=== PATIENT | male | born 1940 | race Caucasian/White ===

== ENCOUNTER → 2020-02-16 08:28 | Outpatient (BNVA) | payer MEDICARE, SELFPAY | PROVIDERS: PCP Internal Medicine; Referring Provider Internal Medicine; Visit Provider Internal Medicine | DX: I48.0 Paroxysmal atrial fibrillation (principal); Z51.81 Encounter for therapeutic drug level monitoring; Z79.01 Long term (current) use of anticoagulants | CPT/HCPCS: 85610; 99211 ==

== ENCOUNTER → 2020-03-08 08:08 | Outpatient (BNVA) | payer MEDICARE, SELFPAY | PROVIDERS: PCP Internal Medicine; Visit Provider Internal Medicine | DX: I48.0 Paroxysmal atrial fibrillation (principal); Z51.81 Encounter for therapeutic drug level monitoring; Z79.01 Long term (current) use of anticoagulants | CPT/HCPCS: 85610; 99211 ==

== ENCOUNTER → 2020-04-05 08:33 | Outpatient (BNVA) | payer MEDICARE, SELFPAY | PROVIDERS: PCP Internal Medicine; Visit Provider Internal Medicine | DX: I48.0 Paroxysmal atrial fibrillation (principal); Z51.81 Encounter for therapeutic drug level monitoring; Z79.01 Long term (current) use of anticoagulants | CPT/HCPCS: 85610; 99211 ==

== ENCOUNTER → 2020-05-03 13:02 | Outpatient (BNVA) | payer MEDICARE, SELFPAY | PROVIDERS: PCP Internal Medicine; Visit Provider Internal Medicine | DX: I48.0 Paroxysmal atrial fibrillation (principal); Z51.81 Encounter for therapeutic drug level monitoring; Z79.01 Long term (current) use of anticoagulants | CPT/HCPCS: 85610; 99211 ==

== ENCOUNTER → 2020-05-31 13:02 | Outpatient (BNVA) | payer MEDICARE, SELFPAY | PROVIDERS: PCP Internal Medicine; Visit Provider Internal Medicine | DX: I48.0 Paroxysmal atrial fibrillation (principal); Z51.81 Encounter for therapeutic drug level monitoring; Z79.01 Long term (current) use of anticoagulants | CPT/HCPCS: 85610; 99211 ==

== ENCOUNTER → 2020-06-28 13:02 | Outpatient (BNVA) | payer MEDICARE, SELFPAY | PROVIDERS: PCP Internal Medicine; Visit Provider Internal Medicine | DX: I48.0 Paroxysmal atrial fibrillation (principal); Z51.81 Encounter for therapeutic drug level monitoring; Z79.01 Long term (current) use of anticoagulants | CPT/HCPCS: 85610; 99211 ==

== ENCOUNTER → 2020-07-26 13:04 | Outpatient (BNVA) | payer MEDICARE, SELFPAY | PROVIDERS: PCP Internal Medicine; Visit Provider Internal Medicine | DX: I48.0 Paroxysmal atrial fibrillation (principal); Z79.01 Long term (current) use of anticoagulants; Z51.81 Encounter for therapeutic drug level monitoring | CPT/HCPCS: 85610; 99211 ==

== ENCOUNTER → 2020-08-23 13:01 | Outpatient (BNVA) | payer MEDICARE, SELFPAY | PROVIDERS: PCP Internal Medicine; Visit Provider Internal Medicine | DX: I48.0 Paroxysmal atrial fibrillation (principal); Z51.81 Encounter for therapeutic drug level monitoring; Z79.01 Long term (current) use of anticoagulants | CPT/HCPCS: 85610; 99211 ==

== ENCOUNTER → 2020-09-27 13:00 | Outpatient (BNVA) | payer MEDICARE, SELFPAY | PROVIDERS: PCP Internal Medicine; Visit Provider Internal Medicine | DX: I48.0 Paroxysmal atrial fibrillation (principal); Z51.81 Encounter for therapeutic drug level monitoring; Z79.01 Long term (current) use of anticoagulants | CPT/HCPCS: 85610; 99211 ==

== ENCOUNTER → 2020-09-30 13:03 | Outpatient (BNVA) | payer MEDICARE, SELFPAY | PROVIDERS: PCP Internal Medicine; Visit Provider Internal Medicine | DX: I48.0 Paroxysmal atrial fibrillation (principal); Z51.81 Encounter for therapeutic drug level monitoring; Z79.01 Long term (current) use of anticoagulants | CPT/HCPCS: 85610; 99211 ==

== ENCOUNTER → 2020-11-01 13:00 | Outpatient (BNVA) | payer MEDICARE, SELFPAY | PROVIDERS: PCP Internal Medicine; Visit Provider Internal Medicine | DX: I48.0 Paroxysmal atrial fibrillation (principal); Z51.81 Encounter for therapeutic drug level monitoring; Z79.01 Long term (current) use of anticoagulants | CPT/HCPCS: 85610; 99211 ==

== ENCOUNTER 2021-06-30 09:21 | Outpatient (REF) | payer MEDICARE, SELFPAY ==
--- NOTE | ~2021-06-30 | US_ITS ---
EXAMINATION: US COMPLETE ABDOMEN WITH LIVER ELASTOGRAPHY CLINICAL INFORMATION: Abnormal CT of liver COMPARISON: None. TECHNIQUE: Real-time imaging of the abdominal viscera. Noninvasive ultrasound liver fibrosis assessment is performed using Masoud ElastPQ point quantification shear wave elastography (2D-SWE) with a C5-2 MHz transducer. Multiple elastography samples are obtained. FINDINGS: PANCREAS: Normal. The visualized pancreatic head and body are normal in appearance. The remainder of the pancreas is obscured from visualization by the overlying bowel gas. ABDOMINAL AORTA: The proximal, middle, and distal aortic segments are normal in caliber. Plaque at the distal aorta. INFERIOR VENA CAVA: Visualized portions are normal. LIVER: The liver demonstrates normal size and Contour with increased echogenicity. No focal lesion or intrahepatic biliary duct dilatation. The right lobe measures 19 cm in length. The left lobe measures 10.7 cm in length. Portal flow is towards the liver (hepatopetal). Shear wave liver elastography median stiffness is 2.6 m/s (reference: normal median stiffness is 1.3 m/s or less). IQR/median stiffness to assess sampling precision is 0.7 (reference: good quality data set is IQR/median stiffness of 0.15 or less). GALLBLADDER: No stones are seen. There is thickening of the gallbladder wall measuring up to 0.8 cm. COMMON BILE DUCT: Normal in caliber measuring 0.3 cm in diameter. RIGHT KIDNEY: No hydronephrosis. Lower pole simple cyst measures 1.2 cm. Multiple small calcifications throughout the kidney could represent calculi. These measure up to 0.3 cm at the upper pole. The kidney measures 10.8 cm in maximum dimension. LEFT KIDNEY: Upper pole cyst versus caliectasis measuring up to 2.8 cm. No hydronephrosis. No renal calculi or focal parenchymal lesions. The kidney measures 10.6 cm in maximum dimension. SPLEEN: Normal. The spleen measures 9.9 cm in maximum dimension. FREE FLUID: Small volume perihepatic free fluid. US/US abdomen comp w elastography IMPRESSION: 1. Hepatic steatosis. 2. Liver elastography: Although measurements appear suggestive of clinically significant portal hypertension, there is statistical variability of the sampling which decreases accuracy. 3. Gallbladder wall thickening which is nonspecific in the setting of liver disease. 4. Possible nonobstructing right renal calculi. REFERENCE: Society of Radiologists in Ultrasound Liver Stiffness Thresholds (2020): LIVER STIFFNESS THRESHOLDS: *Liver Stiffness equal or less than 1.3 m/s: High probability of being normal. *Liver Stiffness less than 1.7 m/s: In the absence of other known clinical signs, rules out compensated advanced chronic liver disease. *Liver Stiffness 1.7-2.1 m/s: Suggestive of compensated advanced chronic liver disease but need further test for confirmation. *Liver Stiffness over 2.1 m/s: Rules in compensated advanced chronic liver disease. *Liver Stiffness over 2.4 m/s: Suggestive of clinically significant portal hypertension. QUALITY OF DATA SET: *IQR/Median value equal or less than 0.15 implies a quality data set. *IQR/Median value over 0.15 implies a poor quality data set. SIGNIFICANT CHANGE FROM PRIOR EXAM: Significant change if liver stiffness measurement is 10% or greater from prior exam. OTHER CONSIDERATIONS: The stage of liver fibrosis may be overestimated in the setting of acute hepatitis, liver inflammation, elevated liver function tests, hepatic vascular congestion, obstructive cholestasis, non-fasting state, and infiltrative diseases such as amyloidosis and lymphoma. In some patients with NAFLD, the liver stiffness thresholds for compensated advanced chronic liver disease may be lower. In causes other than viral hepatitis and NAFLD, liver stiffness thresholds are not well established.
[2021-06-30 09:49] LABS: MANUAL DIFF FLAG NO
[2021-06-30 10:13] LABS: Basophils Percent Auto 0.6 % (0-2); Eosinophils Absolute Auto 0.1 X10*3/uL (0.0-0.4); Hematocrit 33.8 % (42.0-52.0); Hemoglobin 11.1 g/dl (14.0-18.0); Imm Gran Abs Auto 0.03 X10*3/uL (0.00-0.03); Imm Gran Pct Auto 0.6 % (0.0-0.4); Lymphocytes Absolute Auto 0.7 X10*3/uL (1.2-4.9); Lymphocytes Percent Auto 13.6 % (20-40); Mean Corpuscular HGB Conc 32.8 g/dl (31.0-36.0); Mean Corpuscular Hemoglobin 34.4 pg (27.0-33.0); Mean Corpuscular Volume 104.6 fL (80.0-98.0); Mean Platelet Volume 9.3 fL (9.4-12.4); Monocytes Absolute Auto 0.6 X10*3/uL (0.1-1.2); Monocytes Percent Auto 11.6 % (2-11); Neutrophils Absolute Auto 3.5 x10*3/uL (2.0-8.3); Neutrophils Percent Auto 72.6 % (45-73); Platelet Count 153 X10*3/uL (160-400); Red Blood Count 3.23 X10*6/uL (4.60-5.80); Red Cell Distribution Width 15.5 % (11.0-16.0); White Blood Count 4.8 X10*3/uL (4.8-10.8)
[2021-06-30 10:58] LABS: Alanine Aminotransferase 6 U/L (0-40); Albumin Level 3.9 g/dL (3.5-5.0); Alkaline Phosphatase 77 U/L (39-117); Aspartate Amino Transferase 17 U/L (5-37); Bilirubin Direct 1.4 mg/dL (0.0-0.5); Bilirubin Total 2.1 mg/dL (0.0-1.0); Total Protein 6.4 g/dL (6.5-8.0)
[2021-07-05 15:22] LABS: FIB-ALT 6 U/L (9-46); FIB-Alpha-2-Macroglobulin 161 mg/dL (106-279); FIB-Apolipoprotein A1 103 mg/dL (94-176); FIB-GGT 49 U/L (3-70); FIB-Haptoglobin 171 mg/dL (43-212); FIB-Total Bilirubin 1.8 mg/dL (0.2-1.2); Liver Fibrosis Score 0.68; Liver Fibrosis Stage F3; Nec Inflam Act Grade A0; Nec Inflam Act Score 0.02
== END 2021-06-30 09:22 | disposition home or self-care (01) ==
LOC: HO.US 09:21
PROVIDERS: Absent Provider Internal Medicine; PCP Internal Medicine; Visit Provider Internal Medicine
DX: R93.2 Abnormal findings on diagnostic imaging of liver and biliary tract (principal)
CPT/HCPCS: 36415; 76705; 76981; 80076; 81596; 85025

== ENCOUNTER 2021-09-05 11:06 | Outpatient (REF) | payer MEDICARE, SELFPAY ==
[2021-09-05 11:25] LABS: MANUAL DIFF FLAG NO
[2021-09-05 11:47] LABS: Eosinophils Absolute Auto 0.1 X10*3/uL (0.0-0.4); Eosinophils Percent Auto 1.9 % (0-4); Hematocrit 23.7 % (42.0-52.0); Hemoglobin 7.6 g/dl (14.0-18.0); Imm Gran Abs Auto 0.02 X10*3/uL (0.00-0.03); Imm Gran Pct Auto 0.5 % (0.0-0.4); Lymphocytes Absolute Auto 0.8 X10*3/uL (1.2-4.9); Lymphocytes Percent Auto 18.3 % (20-40); Mean Corpuscular HGB Conc 32.1 g/dl (31.0-36.0); Mean Corpuscular Hemoglobin 33.9 pg (27.0-33.0); Mean Corpuscular Volume 105.8 fL (80.0-98.0); Mean Platelet Volume 9.1 fL (9.4-12.4); Monocytes Absolute Auto 0.5 X10*3/uL (0.1-1.2); Monocytes Percent Auto 11.3 % (2-11); Neutrophils Absolute Auto 2.8 x10*3/uL (2.0-8.3); Platelet Count 236 X10*3/uL (160-400); Red Blood Count 2.24 X10*6/uL (4.60-5.80); Red Cell Distribution Width 14.8 % (11.0-16.0); White Blood Count 4.2 X10*3/uL (4.8-10.8)
[2021-09-05 12:11] LABS: Alanine Aminotransferase 6 U/L (0-40); Alkaline Phosphatase 59 U/L (39-117); Anion Gap 14 (12-20); Aspartate Amino Transferase 17 U/L (5-37); Bilirubin Total 1.5 mg/dL (0.0-1.0); Blood Urea Nitrogen 45 mg/dL (9-16); C Reactive Protein 0.16 mg/dL (< or = 0.50); Calcium 9.4 mg/dL (8.4-10.2); Carbon Dioxide 24 mmol/L (22-29); Chloride 102 mmol/L (96-108); Estimated Glomerular Filt Rate 38; Glucose Random 191 mg/dL (60-115); Iron 32 mcg/dL (45-160); Percent Iron Saturation 8 % (15-50); Potassium 4.9 mmol/L (3.3-5.1); Sodium 135 mmol/L (135-145); Total Iron Binding Capacity 412 mcg/dL (228-428); Total Protein 6.8 g/dL (6.5-8.0); Unsaturated Iron Binding 380 ug/dL
[2021-09-05 12:23] LABS: Erythrocyte Sedimentation Rate 49 MM/HR (0-15)
[2021-09-05 12:35] LABS: Ferritin 42 ng/mL (20-250); TSH reflex Free T4 4.42 uIU/mL (0.32-4.0)
[2021-09-05 12:47] LABS: Vitamin B12 737 pg/mL (200-900)
== END 2021-09-05 11:07 | disposition home or self-care (01) ==
LOC: HO.LAB 11:06
PROVIDERS: PCP Internal Medicine; Visit Provider Internal Medicine
DX: K51.20 Ulcerative (chronic) proctitis without complications (principal); K62.5 Hemorrhage of anus and rectum; R53.83 Other fatigue
CPT/HCPCS: 36415; 80048; 80076; 82607; 82728; 82746; 83540; 84439; 84443; 85025; 85652; 86140

== ENCOUNTER 2021-09-06 14:51 | Outpatient (REF) | payer MEDICARE, SELFPAY | END 2021-09-06 14:52 | disposition home or self-care (01) | LOC: HO.LAB 14:51 | PROVIDERS: PCP Internal Medicine; Visit Provider Internal Medicine | DX: Z13.89 Encounter for screening for other disorder (principal) | CPT/HCPCS: 36415; 80048; 85025; 86850; 86900; 86901 ==

== ENCOUNTER 2021-09-07 07:18 | Outpatient (REF) | payer MEDICARE, SELFPAY ==
[2021-09-06 15:13] LABS: MANUAL DIFF FLAG NO
[2021-09-06 15:40] LABS: Basophils Absolute Auto 0.1 X10*3/uL (0.0-0.2); Basophils Percent Auto 1.3 % (0-2); Eosinophils Absolute Auto 0.1 X10*3/uL (0.0-0.4); Eosinophils Percent Auto 1.5 % (0-4); Hematocrit 23.3 % (42.0-52.0); Hemoglobin 7.4 g/dl (14.0-18.0); Imm Gran Abs Auto 0.02 X10*3/uL (0.00-0.03); Imm Gran Pct Auto 0.4 % (0.0-0.4); Lymphocytes Absolute Auto 0.9 X10*3/uL (1.2-4.9); Lymphocytes Percent Auto 18.8 % (20-40); Mean Corpuscular HGB Conc 31.8 g/dl (31.0-36.0); Mean Corpuscular Hemoglobin 33.9 pg (27.0-33.0); Mean Corpuscular Volume 106.9 fL (80.0-98.0); Mean Platelet Volume 8.9 fL (9.4-12.4); Monocytes Absolute Auto 0.7 X10*3/uL (0.1-1.2); Monocytes Percent Auto 13.8 % (2-11); Neutrophils Absolute Auto 3.1 x10*3/uL (2.0-8.3); Neutrophils Percent Auto 64.2 % (45-73); Platelet Count 241 X10*3/uL (160-400); Red Blood Count 2.18 X10*6/uL (4.60-5.80); Red Cell Distribution Width 14.9 % (11.0-16.0); White Blood Count 4.8 X10*3/uL (4.8-10.8)
[2021-09-06 16:10] LABS: Anion Gap 15 (12-20); Blood Urea Nitrogen 40 mg/dL (9-16); Calcium 9.6 mg/dL (8.4-10.2); Carbon Dioxide 23 mmol/L (22-29); Chloride 103 mmol/L (96-108); Estimated Glomerular Filt Rate 39; Glucose Random 181 mg/dL (60-115); Sodium 136 mmol/L (135-145)
== END 2021-09-07 07:19 | disposition home or self-care (01) ==
LOC: HO.MDS 07:18
PROVIDERS: PCP Internal Medicine; Visit Provider Internal Medicine
DX: D64.9 Anemia, unspecified (principal)
CPT/HCPCS: 36415; 36430; 80048; 85025; 86850; 86900; 86901; 86923; P9016

== ENCOUNTER 2021-09-12 12:16 | Day surgery (SDC) | payer MEDICARE, SELFPAY ==
[2021-09-12 13:19] VITALS: BMI 22.4
[2021-09-12 13:47] VITALS: BP 118/64; PULSE 65; RESP 16; TEMP 36.2; O2SAT 99
[2021-09-12 13:48] LABS: Glucose, Whole Blood 127 mg/dL (60-115)
--- NOTE | 2021-09-12 14:33 | P.CONAN_ITS ---
HPI - Anesthesia Eval Consult details Narrative: 81 M for colonoscopy for rectal bleeding A fib , s/p ablation and cardioversion , but failed . Eliquis , last dose 4 days ago , cardiology on board . Rectal bleeding LE weakness , being worked up for metastasis . FOR[facility], [facility] Active Problems Active Problems: All Active Problems (Updated 09/12/21 @ 13:29 by Mercedes Melchor, RN) Current use of anticoagulant therapy (Acute) Past Medical History Medical History (Updated 09/12/21 @ 13:29 by Mercedes Melchor, RN) Afib Cirrhosis Diabetes Elevated cholesterol Gout History of cardioversion History of prostate cancer History of shingles HTN (hypertension) Ulcerative proctitis Family History Family history of problems with anesthesia: No Surgical History Surgical History (Updated 09/12/21 @ 13:31 by Mercedes Melchor, RN) History of carpal tunnel release of both wrists History of total left knee replacement (TKR) Hx of bilateral inguinal hernia repair Hx of colonoscopy History of Problems with Anesthesia: No Social History Social History Patient Tobacco Use Status: Former Tobacco user Quit Date: 40 yrs ago Use of substances other than those prescribed or required for medical reasons: No Are you DNR?: No Advance Directives: No Advance Directives Information Provided: Yes Meds Allergies Allergy/AdvReac Type Severity Reaction Status Date / Time amlodipine [From [facility]] AdvReac Severe Swelling Verified 09/12/21 13:05 Active Medications: Current Medications Sodium Biphosphate/Sodium Phosphate (Sodium Phosphate,Morrill-Dibasic 133 Ml Enema) 133 ml ND ONCE PRN PRN Reason: Poor Colonoscopy Prep Results Home Medications Medication Instructions Recorded Confirmed Last Taken Type allopurinol 100 mg tablet 200 mg PO DAILY 07/26/20 07/26/20 Unknown History balsalazide 750 mg capsule 750 mg PO TID 07/26/20 07/26/20 Unknown History blood sugar diagnostic #10 ea 07/26/20 07/26/20 Unknown History doxazosin 2 mg tablet 2 mg PO DAILY 07/26/20 07/26/20 Unknown History glipizide 5 mg tablet 15 mg PO DAILY 07/26/20 07/26/20 Unknown History lancets 30 gauge #100 ea 07/26/20 07/26/20 Unknown History metformin 500 mg tablet,extended 500 mg PO DAILY 07/26/20 07/26/20 Unknown History release 24 hr simvastatin 40 mg tablet 40 mg PO BEDTIME 07/26/20 07/26/20 Unknown History spironolactone 25 mg tablet 25 mg PO DAILY 07/26/20 07/26/20 Unknown History torsemide 20 mg tablet 20 mg PO DAILY 07/26/20 07/26/20 Unknown History apixaban 5 mg tablet (Eliquis) 1 tab PO BID 09/12/21 09/12/21 09/07/21 History glipizide 5 mg tablet 10 mg PO BEDTIME 09/12/21 09/12/21 Unknown History metoprolol succinate 25 mg 25 mg PO DAILY 09/12/21 09/12/21 09/12/21 10:00 History tablet,extended release 24 hr Exam Exam Date and Time: September 12, 2021 1433 Height,Weight and Vital Signs: Height 5 ft 8.5 in Weight 68.039 kg Last Vital Signs Temp 97.2 F 09/12/21 13:47 Pulse 65 09/12/21 13:47 Resp 16 09/12/21 13:47 BP 118/64 09/12/21 13:47 Pulse Ox 99 09/12/21 13:47 Pertinent Lab Results Pertinent Lab Results: Laboratory Tests 09/12/21 13:23 POC Glucose 127 H Airway Mallampati Class: IV TM Dist: >3cm Neck ROM: Full Loose/Missing/Broken Teeth: Yes (Loose teeth , Missibg teeth , caps ) Heart: S1, S2 Lungs: b/l breath sounds Assessment and Plan Assessment Anesthesia Assessment: Anesthesia Plan Discussed and Chart Reviewed Final Anesthetic Review Family History of Problems with Anesthesia: No History of Problems with Anesthesia: No NPO: Yes ASA Class: III Final Preanesthetic Review: Meds/Allgs Chart Reviewed and Anes Risks/Benef Reviewed Patient Risk: High Procedure Risk: Intermediate Anesthetic Plan Anesthetic Plan: MAC: Disposition: Standard PACU
[2021-09-12] MEDS: Lactated Ringers 1,000 ML 80 ML IVCONT (14:56)
[2021-09-12 16:30] VITALS: BP 91/61; PULSE 76; RESP 18; TEMP 36.2; O2SAT 100
--- NOTE | 2021-09-12 16:31 | PM.OP ---
Brief Operative Note Date of Service: 09/12/21 Pre-op diagnosis: Rectal bleeding Post-op diagnosis: other (Ulcerative proctitis/Radiation proctitis. Diverticulosis) Procedure: Colonoscopy to the cecum Surgeon: Darnell Jordan Anesthesia: MAC Was an Film Casting Operator used for this Procedure?: No Estimated blood loss (mL): 5.0 Pathology: none sent Condition: stable Disposition: PACU
[2021-09-12 16:45] VITALS: BP 102/53; PULSE 68; RESP 18; O2SAT 99
[2021-09-12 17:00] VITALS: BP 112/66; PULSE 70; RESP 18; O2SAT 97
[2021-09-12 17:05] LABS: MANUAL DIFF FLAG NO
[2021-09-12 17:06] LABS: Basophils Percent Auto 1.4 % (0-2); Eosinophils Percent Auto 1.4 % (0-4); Hematocrit 26.1 % (42.0-52.0); Hemoglobin 8.1 g/dl (14.0-18.0); Lymphocytes Absolute Auto 0.7 X10*3/uL (1.2-4.9); Lymphocytes Percent Auto 24.7 % (20-40); Mean Corpuscular Hemoglobin 32.9 pg (27.0-33.0); Mean Corpuscular Volume 106.1 fL (80.0-98.0); Mean Platelet Volume 8.7 fL (9.4-12.4); Monocytes Absolute Auto 0.4 X10*3/uL (0.1-1.2); Neutrophils Absolute Auto 1.6 x10*3/uL (2.0-8.3); Neutrophils Percent Auto 58.5 % (45-73); Platelet Count 201 X10*3/uL (160-400); Red Blood Count 2.46 X10*6/uL (4.60-5.80); Red Cell Distribution Width 14.2 % (11.0-16.0); White Blood Count 2.8 X10*3/uL (4.8-10.8)
[2021-09-12 17:12] LABS: INTERNATIONAL NORM RATIO 1.3 (0.9-1.1); Prothrombin Time 14.4 SEC (9.9-13.0)
--- NOTE | 2021-09-12 17:12 | PC.NURSE ---
dr. moore alerted that patient results have returned. h/h 8.1/.1
--- NOTE | 2021-09-12 17:26 | PC.NURSE ---
dr. moore met with patient and family to review plan of care and results stat cbc.
--- NOTE | 2021-09-13 03:47 | OP_ITS ---
SURGEON: Darnell Jordan MD INDICATIONS: The patient presents for evaluation of rectal bleeding. Full consent has been obtained from him for this, including risks of bleeding and perforation. PREOPERATIVE DIAGNOSIS: POSTOPERATIVE DIAGNOSIS: PROCEDURE PERFORMED: ESTIMATED BLOOD LOSS: COMPLICATIONS: ANESTHESIA: Monitored anesthesia care. ASSISTANTS: SPECIMENS: PROCEDURE: Colonoscopy to the cecum. PREOPERATIVE DIAGNOSES: Rectal bleeding. POSTOPERATIVE DIAGNOSES: Rectal bleeding, proctitis, diffuse diverticulosis. DESCRIPTION OF PROCEDURE: The digital rectal exam revealed no perianal disease. There is no palpable mass nor tenderness. The Olympus video pediatric colonoscope was entered into the rectum and advanced to the cecum. Advancement to the cecum was somewhat difficult. Preparation, particularly in the sigmoid colon and left colon was somewhat poor with solid stool. Once in the cecum, I did identify cecal pouch with appendiceal orifice and a normal-appearing ileocecal valve. The cecum appeared normal. The scope was slowly withdrawn assessing all mucosal surfaces carefully. Preparation was good in the ascending colon and transverse colon, but again there was a moderate amount of solid stool in the descending and sigmoid colon. The stool was brown and there was no blood. I did not visualize any sign of colitis, polyps, nor angiodysplasia. There was a diffuse amount of diverticulosis extending from the proximal ascending colon to the distal sigmoid colon. The only area of bleeding was in the very distal rectum. This was seen in the forward viewing and retroflexed positions. The tissue was very friable at this area. After a lot of irrigation and suctioning parts of the distal rectum appeared consistent with some ulcerative proctitis and bleeding from those areas, but other parts appeared consistent with very friable telangiectasia and bleeding from that area with a lot of friability. There was one area with some ulceration noted in the distal rectum as well. I did not visualize anything looking like a neoplasm that needed biopsy and the tissue itself was extremely friable anyway so I wanted to avoid biopsying that area anyway. The area of inflammation and friability was probably just in the distal 2 to 3 cm of the rectum. The scope was withdrawn from the patient. He tolerated the procedure well and was returned to the recovery area in stable condition. IMPRESSION: 1. 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 2. Diverticulosis. 3. Small internal hemorrhoids. PLAN: At this point, the patient has been using balsalazide 2.25 g t.i.d. and a nightly 1000 mg mesalamine suppository for about 2 months. While he has been off the Eliquis for the past week, he has noticed a definite decrease in his bleeding. However, while he is on the Eliquis, he has had significant bleeding and in fact required a unit of blood as an outpatient last week. At this point, I have advised him to remain off Eliquis for another week. I shall switch him to a trial of a steroid suppository b.i.d., as well as continuing his balsalazide. I do not think a steroid foam would be helpful given the very distal location of this inflammation. If he continues to have significant problems, then we might need to consider something such as argon plasma coagulation of the area to at least treat any component of a radiation proctitis, although again it does appear that there is some component of ulcerative proctitis as well. He was advised to stay off all aspirin and NSAIDs. He is going to have another CBC today before he goes home to be sure things are stable. If it does come to the point of his needing another procedure then we may want to obtain biopsies from the area of presumed proctitis so as to more definitively rule out any type of neoplastic involvement as well. This has all been discussed with his in detail. Also of note is the patient's weight loss. He is scheduled for an MRI at the end of this week to further evaluate for the possibility of metastatic prostate cancer. If that is negative for that, we will need to follow his weight and see if there is some other source contributing to the weight loss as well. This has been discussed with his as well. MD EMMETT Tsang/EDDIE / [id number] [place]
== END 2021-09-12 17:27 | disposition home or self-care (01) ==
PROVIDERS: PCP Internal Medicine; Visit Provider Internal Medicine
PROC: 0DJD8ZZ Inspection of Lower Intestinal Tract, Via Natural or Artificial Opening Endoscopic (ICD-10-PCS; CPT 45378; principal; 2021-09-12 13:40)
DX: K62.5 Hemorrhage of anus and rectum (principal); D64.9 Anemia, unspecified; R63.4 Abnormal weight loss; K51.20 Ulcerative (chronic) proctitis without complications; K62.7 Radiation proctitis; K57.30 Diverticulosis of large intestine without perforation or abscess without bleeding; K64.8 Other hemorrhoids; K74.60 Unspecified cirrhosis of liver; E78.00 Pure hypercholesterolemia, unspecified; I48.91 Unspecified atrial fibrillation; I10 Essential (primary) hypertension; M10.9 Gout, unspecified; E11.9 Type 2 diabetes mellitus without complications; Z79.84 Long term (current) use of oral hypoglycemic drugs; Z79.899 Other long term (current) drug therapy; Z79.01 Long term (current) use of anticoagulants; Z88.8 Allergy status to other drugs, medicaments and biological substances; Z85.46 Personal history of malignant neoplasm of prostate; Z96.652 Presence of left artificial knee joint; Z87.891 Personal history of nicotine dependence
CPT/HCPCS: 45378; 36415; 82947; 85025; 85610

== ENCOUNTER 2021-09-22 09:27 | Outpatient (REF) | payer MEDICARE, SELFPAY | END 2021-09-22 09:28 | disposition home or self-care (01) | LOC: HO.MDS 09:27 | PROVIDERS: PCP Radiology Diagnostic Radiology; Visit Provider Internal Medicine | DX: D64.9 Anemia, unspecified (principal); K51.20 Ulcerative (chronic) proctitis without complications | CPT/HCPCS: 36430; 86850; 86900; 86901; 86923; P9016 ==

== ENCOUNTER 2021-10-11 06:17 | Day surgery (SDC) | payer MEDICARE, SELFPAY ==
--- NOTE | 2021-10-10 12:00 | HO.ANESPROP2 ---
HPI - Anesthesia Eval Consult details Narrative: 81yo M for Sigmoidoscopy Flexible with APC Eliquis for afib s/p colo 08/2021 with MAC PMFSH Active Problems Active Problems: All Active Problems (Updated 09/12/21 @ 13:29 by Mercedes Melchor, RN) Current use of anticoagulant therapy (Acute) Past Medical History Medical History (Updated 09/12/21 @ 13:29 by Mercedes Melchor, RN) Afib Cirrhosis Diabetes Elevated cholesterol Gout History of cardioversion History of prostate cancer History of shingles HTN (hypertension) Ulcerative proctitis Family History Family history of problems with anesthesia: No Surgical History Surgical History (Updated 09/12/21 @ 13:31 by Mercedes Melchor, RN) History of carpal tunnel release of both wrists History of total left knee replacement (TKR) Hx of bilateral inguinal hernia repair Hx of colonoscopy History of Problems with Anesthesia: No Social History Social History Patient Tobacco Use Status: Former Tobacco user Quit Date: 40 yrs ago Meds Allergies Allergy/AdvReac Type Severity Reaction Status Date / Time amlodipine [From [facility]] AdvReac Severe Swelling Verified 09/12/21 13:05 Home Medications Medication Instructions Recorded Confirmed Last Taken Type allopurinol 100 mg tablet 200 mg PO DAILY 07/26/20 07/26/20 Unknown History balsalazide 750 mg capsule 750 mg PO TID 07/26/20 07/26/20 Unknown History blood sugar diagnostic #10 ea 07/26/20 07/26/20 Unknown History doxazosin 2 mg tablet 2 mg PO DAILY 07/26/20 07/26/20 Unknown History glipizide 5 mg tablet 15 mg PO DAILY 07/26/20 07/26/20 Unknown History lancets 30 gauge #100 ea 07/26/20 07/26/20 Unknown History metformin 500 mg tablet,extended 500 mg PO DAILY 07/26/20 07/26/20 Unknown History release 24 hr simvastatin 40 mg tablet 40 mg PO BEDTIME 07/26/20 07/26/20 Unknown History spironolactone 25 mg tablet 25 mg PO DAILY 07/26/20 07/26/20 Unknown History torsemide 20 mg tablet 20 mg PO DAILY 07/26/20 07/26/20 Unknown History apixaban 5 mg tablet (Eliquis) 1 tab PO BID 09/12/21 09/12/21 09/07/21 History glipizide 5 mg tablet 10 mg PO BEDTIME 09/12/21 09/12/21 Unknown History metoprolol succinate 25 mg 25 mg PO DAILY 09/12/21 09/12/21 09/12/21 10:00 History tablet,extended release 24 hr Exam Exam Date and Time: October 10, 2021 1200 Pertinent Lab Results Pertinent Lab Results: Laboratory Tests 09/06/21 09/12/21 15:11 17:00 WBC 2.8 L Hgb 8.1 L Hct 26.1 L Plt Count 201 Sodium 136 Potassium 5.0 Chloride 103 Carbon Dioxide 23 BUN 40 H Creatinine 1.68 H Labs from outside facility done 10/05/21 similar to above Assessment and Plan Assessment Anesthesia Assessment: Chart Reviewed Final Anesthetic Review Family History of Problems with Anesthesia: No History of Problems with Anesthesia: No
[2021-10-11 06:34] VITALS: BMI 22.4
[2021-10-11 06:34] LABS: MANUAL DIFF FLAG NO
[2021-10-11 06:37] LABS: Basophils Absolute Auto 0.1 X10*3/uL (0.0-0.2); Basophils Percent Auto 1.1 % (0-2); Eosinophils Absolute Auto 0.1 X10*3/uL (0.0-0.4); Eosinophils Percent Auto 2.2 % (0-4); Hematocrit 29.7 % (42.0-52.0); Hemoglobin 9.3 g/dl (14.0-18.0); Imm Gran Abs Auto 0.01 X10*3/uL (0.00-0.03); Imm Gran Pct Auto 0.2 % (0.0-0.4); Lymphocytes Absolute Auto 0.9 X10*3/uL (1.2-4.9); Lymphocytes Percent Auto 20.8 % (20-40); Mean Corpuscular HGB Conc 31.3 g/dl (31.0-36.0); Mean Corpuscular Hemoglobin 30.8 pg (27.0-33.0); Mean Corpuscular Volume 98.3 fL (80.0-98.0); Mean Platelet Volume 8.6 fL (9.4-12.4); Monocytes Absolute Auto 0.6 X10*3/uL (0.1-1.2); Monocytes Percent Auto 13.2 % (2-11); Neutrophils Absolute Auto 2.8 x10*3/uL (2.0-8.3); Neutrophils Percent Auto 62.5 % (45-73); Platelet Count 235 X10*3/uL (160-400); Red Blood Count 3.02 X10*6/uL (4.60-5.80); White Blood Count 4.5 X10*3/uL (4.8-10.8)
[2021-10-11 06:42] VITALS: BP 117/66; PULSE 65; RESP 16; TEMP 36.4; O2SAT 98
[2021-10-11 06:55] LABS: INTERNATIONAL NORM RATIO 1.3 (0.9-1.1); Prothrombin Time 14.8 SEC (9.9-13.0)
[2021-10-11] MEDS: Lactated Ringers 1,000 ML 50 ML IVCONT (07:08)
[2021-10-11 07:15] LABS: Glucose, Whole Blood 153 mg/dL (60-115)
--- NOTE | 2021-10-11 07:23 | HO.ANESPROP2 ---
[facility] Active Problems Active Problems: All Active Problems (Updated 09/12/21 @ 13:29 by Mercedes Melchor RN) Current use of anticoagulant therapy (Acute) Past Medical History Medical History Afib Cirrhosis Diabetes Elevated cholesterol Gout History of cardioversion History of prostate cancer History of shingles HTN (hypertension) Ulcerative proctitis Family History Family history of problems with anesthesia: No Surgical History Surgical History History of carpal tunnel release of both wrists History of total left knee replacement (TKR) Hx of bilateral inguinal hernia repair Hx of colonoscopy History of Problems with Anesthesia: No Social History Social History Patient Tobacco Use Status: Former Tobacco user Quit Date: >30 yrs ago Use of substances other than those prescribed or required for medical reasons: No Are you DNR?: No Advance Directives: No Advance Directives Information Provided: Yes Meds Allergies Allergy/AdvReac Type Severity Reaction Status Date / Time amlodipine [From [facility]] AdvReac Severe Swelling Verified 10/11/21 06:31 Active Medications: Current Medications Lactated Ringer's (Lr) 1,000 mls @ 50 mls/hr IVCONT .Q20H MIKEY Last Admin: 10/11/21 07:08 Dose: 50 mls/hr Home Medications Medication Instructions Recorded Confirmed Last Taken Type allopurinol 100 mg tablet 200 mg PO DAILY 07/26/20 10/11/21 Unknown History balsalazide 750 mg capsule 750 mg PO TID 07/26/20 10/11/21 Unknown History blood sugar diagnostic #10 ea 07/26/20 10/11/21 Unknown History doxazosin 2 mg tablet 2 mg PO DAILY 07/26/20 10/11/21 Unknown History glipizide 5 mg tablet 15 mg PO DAILY 07/26/20 10/11/21 Unknown History lancets 30 gauge #100 ea 07/26/20 10/11/21 Unknown History metformin 500 mg tablet,extended 500 mg PO DAILY 07/26/20 10/11/21 Unknown History release 24 hr simvastatin 40 mg tablet 40 mg PO BEDTIME 07/26/20 10/11/21 Unknown History spironolactone 25 mg tablet 25 mg PO DAILY 07/26/20 10/11/21 Unknown History torsemide 20 mg tablet 20 mg PO DAILY 07/26/20 10/11/21 Unknown History apixaban 5 mg tablet (Eliquis) 1 tab PO BID 09/12/21 10/11/21 10/05/21 History glipizide 5 mg tablet 10 mg PO BEDTIME 09/12/21 10/11/21 Unknown History metoprolol succinate 25 mg 25 mg PO DAILY 09/12/21 10/11/21 10/11/21 06:00 History tablet,extended release 24 hr Exam Exam Date and Time: October 11, 2021722 Height,Weight and Vital Signs: Height 5 ft 8.5 in Weight 68.039 kg Last Vital Signs Temp 97.6 F 10/11/21 06:42 Pulse 65 10/11/21 06:42 Resp 16 10/11/21 06:42 BP 117/66 10/11/21 06:42 Pulse Ox 98 10/11/21 06:42 O2 Del Method 10/11/21 06:42 Pertinent Lab Results Pertinent Lab Results: Laboratory Tests 10/11/21 10/11/21 10/11/21 06:28 06:28 06:59 WBC 4.5 L RBC 3.02 L D Hgb 9.3 L Hct 29.7 L MCV 98.3 H MCH 30.8 MCHC 31.3 RDW 17.0 H Plt Count 235 MPV 8.6 L Immature Gran % (Auto) 0.2 Neut % (Auto) 62.5 Lymph % (Auto) 20.8 [place] % (Auto) 13.2 H Eos % (Auto) 2.2 Baso % (Auto) 1.1 Lymph # (Auto) 0.9 L [place] # (Auto) 0.6 Eos # (Auto) 0.1 Baso # (Auto) 0.1 Abs Immat Gran (auto) 0.01 Absolute Neuts (auto) 2.8 Absolute Nucleated RBC 0.000 Nucleated RBC % (auto) 0.0 PT 14.8 H INR 1.3 H POC Glucose 153 H Airway Mallampati Class: III TM Dist: >3cm Neck ROM: Full Partial: Upper Loose/Missing/Broken Teeth: Yes and Upper Heart: irrr Lungs: clear Assessment and Plan Final Anesthetic Review Family History of Problems with Anesthesia: No History of Problems with Anesthesia: No NPO: Yes ASA Class: III Final Preanesthetic Review: No Changes in Pt Med Stat, Meds/Allgs Chart Reviewed, Consent Obtained/Reviewed and Anes Risks/Benef Reviewed Patient Risk: Intermediate Procedure Risk: Low Anesthetic Plan Disposition: Standard PACU
--- NOTE | 2021-10-11 08:14 | P.BOP_ITS ---
Brief Operative Note Date of Service: 10/11/21 Pre-op diagnosis: rectal bleeding, radiation proctitis, ulcerative proctitis Post-op diagnosis: same Procedure: FLEXIBLE SIGMOIDOSCOPY TILL 20 CMS WITH APC TREATMENT OF RADIATION PROCTITIS Consent: Indications for the procedure and potential complications of bleeding, perforation, reaction to medications and missed diagnosis were discussed with the patient and informed consent was obtained. Instrument: Olympus PCF H 190 L variable stiffness pediatric colonoscope Monitoring: Vital signs and clinical assessment, intermittent blood pressure monitoring, continuous EKG monitoring, Pulse oximetry and Carbon Dioxide monitoring were done throughout the procedure. Procedure: The patient was placed in the left lateral decubitis position and pre-procedure medications were administered. After a digital rectal examination of the ano-rectum, the video colonoscope was inserted into the rectum and advanced to 30 cms into the sigmoid colon. The colonoscope was slowly withdrawn in a retrograde panoramic fashion and the colon mucosa was carefully examined including a retroflexed view of the rectum. Findings and interventions are described below. Procedure Difficulty: Without difficulty Findings: Sigmoid Colon: Normal mucosa without bleeding. Moderate diverticulosis Rectum: Friable appearing mucosa from 0-8 cms with multiple telangiectasia some with slow oozing. Radiation proctitis was treated with APC with cessation of bleeding. A single 7-8 mm ulcer just above the anal verge - ulcerative proctitis appears to have improved since his previous colonoscopy. Ano-rectum: Normal Impression and Post Procedure Diagnosis: Flexible Sigmoidoscopy Findings: Moderate diverticulosis seen in the sigmoid colon Plan: Patient will follow up with Dr Jordan. If he has continued rectal bleeding, repeat Flexible Sigmoidoscopy in 4-6 weeks for repeat APC treatment. Above findings were reviewed with the patient. Surgeon: MD Darnell Myrick MD Anesthesia: MAC (Dr Emerson) Was an Sdv Pilot/Navigator/Dds Operator used for this Procedure?: Yes Sdv Pilot/Navigator/Dds Operator: Kamryn Farmer Estimated blood loss (mL): 0 Pathology: none sent Condition: stable Disposition: PACU
[2021-10-11 08:16] VITALS: BP 109/67; PULSE 62; RESP 18; TEMP 37.1; O2SAT 100
[2021-10-11] MEDS: ondansetron HCL 4 MG/2 ML VIAL IVPUSH (08:16)
--- NOTE | 2021-10-11 08:16 | P.BOP_ITS ---
Brief Operative Note Date of Service: 10/11/21 Pre-op diagnosis: Rectal bleeding Post-op diagnosis: other (Radiation-induced proctitis with telangiectasias and rectal ulcer) Procedure: Flex sig with APC treatment Surgeon: Darnell Jordan Anesthesia: MAC Was an Financial Services Professional used for this Procedure?: No Financial Services Professional: Whit José Estimated blood loss (mL): 5.0 Pathology: none sent Condition: stable Disposition: PACU
--- NOTE | 2021-10-11 08:24 | P.OP_ITS ---
Operative Note Operative Note Date of Service: 10/11/21 Narrative: Pre-op diagnosis: rectal bleeding, radiation proctitis, ulcerative proctitis Post-op diagnosis:?same Procedure: FLEXIBLE SIGMOIDOSCOPY TILL 20 CMS WITH APC TREATMENT OF RADIATION PROCTITIS Consent: Indications for the procedure and potential complications of bleeding, perforation, reaction to medications and missed diagnosis were discussed with the patient and informed consent was obtained. Instrument: Olympus PCF H 190 L variable stiffness pediatric colonoscope Monitoring: Vital signs and clinical assessment, intermittent blood pressure monitoring, continuous EKG monitoring, Pulse oximetry and Carbon Dioxide monitoring were done throughout the procedure. Procedure: The patient was placed in the left lateral decubitis position and pre-procedure medications were administered. After a digital rectal examination of the ano-rectum, the video colonoscope was inserted into the rectum and advanced to 30 cms into the sigmoid colon. The colonoscope was slowly withdrawn in a retrograde panoramic fashion and the colon mucosa was carefully examined including a retroflexed view of the rectum. Findings and interventions are described below. Procedure Difficulty: Without difficulty Findings: Sigmoid Colon:? Normal mucosa without bleeding. Moderate diverticulosis Rectum:? Friable appearing mucosa from 0-8 cms with multiple telangiectasia some with slow oozing. Radiation proctitis was treated with APC with cessation of bleeding. A single 7-8 mm ulcer just above the anal verge - ulcerative proctitis appears to have improved since his previous colonoscopy. Ano-rectum: Normal Impression and Post Procedure Diagnosis: Flexible Sigmoidoscopy Findings: Moderate diverticulosis seen in the sigmoid colon Plan: Patient will follow up with Dr Jordan. If he has continued rectal bleeding, repeat Flexible Sigmoidoscopy in 4-6 weeks for repeat APC treatment. Above findings were reviewed with the patient. Surgeon: MD Darnell Myrick MD Anesthesia:?MAC (Dr Emerson) Was an Supervisor Electron Tube Processing used for this Procedure?:?Yes Supervisor [employer] Tube Processing:?Kamryn Farmer Estimated blood loss (mL):?0 Pathology:?none sent Condition:?stable Disposition:?PACU
[2021-10-11 08:31] VITALS: BP 112/66; PULSE 67; RESP 18; TEMP 36.7; O2SAT 97
== END 2021-10-11 09:00 | disposition home or self-care (01) ==
PROVIDERS: PCP Internal Medicine; Visit Provider Internal Medicine
PROC: 0DJD8ZZ Inspection of Lower Intestinal Tract, Via Natural or Artificial Opening Endoscopic (ICD-10-PCS; CPT 45330; principal; 2021-10-11 07:30)
DX: K62.5 Hemorrhage of anus and rectum (principal); K51.20 Ulcerative (chronic) proctitis without complications; Z85.46 Personal history of malignant neoplasm of prostate; K62.7 Radiation proctitis; Y84.2 Radiological procedure and radiotherapy as the cause of abnormal reaction of the patient, or of later complication, without mention of misadventure at the time of the procedure; Z80.0 Family history of malignant neoplasm of digestive organs; Z86.010 Personal history of colon polyps; K74.60 Unspecified cirrhosis of liver; D64.9 Anemia, unspecified; R53.1 Weakness; I10 Essential (primary) hypertension; E78.5 Hyperlipidemia, unspecified; I48.91 Unspecified atrial fibrillation; E11.9 Type 2 diabetes mellitus without complications; Z79.84 Long term (current) use of oral hypoglycemic drugs; Z79.01 Long term (current) use of anticoagulants; Z79.899 Other long term (current) drug therapy; Z87.891 Personal history of nicotine dependence; Z96.652 Presence of left artificial knee joint
CPT/HCPCS: 45334; 36415; 82947; 85025; 85610; J2405

== ENCOUNTER 2021-10-26 10:41 | Outpatient (REF) | payer MEDICARE, SELFPAY ==
[2021-10-26 10:51] LABS: MANUAL DIFF FLAG NO
[2021-10-26 11:58] LABS: Basophils Percent Auto 0.8 % (0-2); Eosinophils Absolute Auto 0.1 X10*3/uL (0.0-0.4); Eosinophils Percent Auto 1.4 % (0-4); Hematocrit 27.7 % (42.0-52.0); Hemoglobin 8.6 g/dl (14.0-18.0); Imm Gran Abs Auto 0.01 X10*3/uL (0.00-0.03); Imm Gran Pct Auto 0.2 % (0.0-0.4); Lymphocytes Absolute Auto 0.8 X10*3/uL (1.2-4.9); Lymphocytes Percent Auto 16.6 % (20-40); Mean Corpuscular Hemoglobin 29.5 pg (27.0-33.0); Mean Corpuscular Volume 94.9 fL (80.0-98.0); Mean Platelet Volume 9.4 fL (9.4-12.4); Monocytes Absolute Auto 0.6 X10*3/uL (0.1-1.2); Neutrophils Absolute Auto 3.4 x10*3/uL (2.0-8.3); Platelet Count 245 X10*3/uL (160-400); Red Blood Count 2.92 X10*6/uL (4.60-5.80); Red Cell Distribution Width 17.6 % (11.0-16.0); White Blood Count 4.9 X10*3/uL (4.8-10.8)
== END 2021-10-26 10:42 | disposition home or self-care (01) ==
LOC: HO.LAB 10:41
PROVIDERS: PCP Internal Medicine; Visit Provider Internal Medicine
DX: K62.5 Hemorrhage of anus and rectum (principal)
CPT/HCPCS: 36415; 85025

== ENCOUNTER 2021-11-10 06:22 | Day surgery (SDC) | payer MEDICARE, SELFPAY ==
[2021-11-04 12:11] VITALS: BMI 22.9
--- NOTE | 2021-11-09 08:32 | P.CONAN_ITS ---
Documented by User: Nazia Bertrand NP 11/09/21 12:55 HPI - Anesthesia Eval Consult details Narrative: 81yo M for Sigmoidoscopy Flexible with APC Eliquis for afib s/p flex sig 09/2021 with MAC Per patient, continues with GIB. PMFSH Active Problems Active Problems: All Active Problems (Updated 11/04/21 @ 12:08 by Lesvia Edwards, RN) Current use of anticoagulant therapy (Acute) Past Medical History Medical History Afib Anemia Cirrhosis Diabetes Elevated cholesterol Gout History of blood transfusion History of cardioversion History of prostate cancer History of shingles HTN (hypertension) Hx of flexible sigmoidoscopy Hx of therapeutic radiation Ulcerative proctitis Family History Family history of problems with anesthesia: No Surgical History Surgical History History of carpal tunnel release of both wrists History of total left knee replacement (TKR) Hx of bilateral inguinal hernia repair Hx of colonoscopy History of Problems with Anesthesia: No Social History Social History Are you a primary field care advocate to a significant other at home: No Do you presently have visiting nurse or other home services: No Patient Tobacco Use Status: Former Tobacco user Quit Date: Tobacco use type: Cigarette Are you DNR?: No Advance Directives: No (will bring dos) Advance Directives Information Provided: Yes Advance Directives on File: No Recently lost weight without trying: Yes How much weight loss: 34pounds or more Eating poorly because of decreased appetite: No Nutrition screen score: 6 Poor oral hygiene: No Meds Allergies Allergy/AdvReac Type Severity Reaction Status Date / Time [facility] AdvReac Severe Swelling Verified 11/04/21 12:05 Home Medications Medication Instructions Recorded Confirmed Last Taken Type allopurinol 100 mg tablet 200 mg PO DAILY 07/26/20 11/04/21 Unknown History balsalazide 750 mg capsule 750 mg PO TID 07/26/20 11/04/21 Unknown History blood sugar diagnostic #10 ea 07/26/20 10/11/21 Unknown History doxazosin 2 mg tablet 2 mg PO DAILY@1700 07/26/20 11/04/21 Unknown History glipizide 5 mg tablet 15 mg PO DAILY 07/26/20 11/04/21 Unknown History lancets 30 gauge #100 ea 07/26/20 10/11/21 Unknown History metformin 500 mg tablet,extended 500 mg PO DAILY 07/26/20 11/04/21 Unknown History release 24 hr simvastatin 40 mg tablet 40 mg PO BEDTIME 07/26/20 11/04/21 Unknown History spironolactone 25 mg tablet 25 mg PO DAILY 07/26/20 11/04/21 Unknown History torsemide 20 mg tablet 20 mg PO DAILY 07/26/20 11/04/21 Unknown History apixaban 5 mg tablet (Eliquis) 0.5 tab PO BID 09/12/21 11/04/21 10/05/21 History glipizide 5 mg tablet 10 mg PO BEDTIME 09/12/21 11/04/21 Unknown History metoprolol succinate 25 mg 25 mg PO DAILY 09/12/21 11/10/21 11/10/21 06:00 Histo ry tablet,extended release 24 hr Exam Exam Date and Time: November 09, 2021 0832 Height,Weight and Vital Signs: Height 5 ft 8 in Weight 68.492 kg Pertinent Lab Results Pertinent Lab Results: Laboratory Tests 09/06/21 10/26/21 15:11 10:50 WBC 4.9 Hgb 8.6 L Hct 27.7 L Plt Count 245 Sodium 136 Potassium 5.0 Chloride 103 Carbon Dioxide 23 BUN 40 H Creatinine 1.68 H Narrative Narrative: US abdomen comp w elastography 06/2021 IMPRESSION: 1. Hepatic steatosis. ? 2. Liver elastography:? Although measurements appear suggestive of clinically significant portal hypertension, there is statistical variability of the sampling which decreases accuracy. ? 3. Gallbladder wall thickening which is nonspecific in the setting of liver disease. ? 4. Possible nonobstructing right renal calculi. Assessment and Plan Assessment Anesthesia Assessment: Chart Reviewed Final Anesthetic Review Family History of Problems with Anesthesia: No History of Problems with Anesthesia: No Documented by User: Karla Basilio MD 11/10/21 07:31 HPI - Anesthesia Eval Consult details Narrative: 81yo M for Sigmoidoscopy Flexible with APC Eliquis for afib. Last s/p flex sig 09/2021 with MAC Per patient, continues with GIB. [facility] Past Medical History Medical History Afib Anemia Cirrhosis Diabetes Elevated cholesterol Gout History of blood transfusion History of cardioversion History of prostate cancer History of shingles HTN (hypertension) Hx of flexible sigmoidoscopy Hx of therapeutic radiation Ulcerative proctitis Surgical History Surgical History History of carpal tunnel release of both wrists History of total left knee replacement (TKR) Hx of bilateral inguinal hernia repair Hx of colonoscopy Social History Social History Are you a primary field care advocate to a significant other at home: No Do you presently have visiting nurse or other home services: No Patient Tobacco Use Status: Former Tobacco user Quit Date: Tobacco use type: Cigarette Are you DNR?: No Advance Directives: No (will bring dos) Advance Directives Information Provided: Yes Advance Directives on File: No Recently lost weight without trying: Yes How much weight loss: 34pounds or more Eating poorly because of decreased appetite: No Nutrition screen score: 6 Poor oral hygiene: No Meds Allergies Allergy/AdvReac Type Severity Reaction Status Date / Time amlodipine [From [facility]] AdvReac Severe Swelling Verified 11/04/21 12:05 Home Medications Medication Instructions Recorded Confirmed Last Taken Type allopurinol 100 mg tablet 200 mg PO DAILY 07/26/20 11/04/21 Unknown History balsalazide 750 mg capsule 750 mg PO TID 07/26/20 11/04/21 Unknown History blood sugar diagnostic #10 ea 07/26/20 10/11/21 Unknown History doxazosin 2 mg tablet 2 mg PO DAILY@1700 07/26/20 11/04/21 Unknown History glipizide 5 mg tablet 15 mg PO DAILY 07/26/20 11/04/21 Unknown History lancets 30 gauge #100 ea 07/26/20 10/11/21 Unknown History metformin 500 mg tablet,extended 500 mg PO DAILY 07/26/20 11/04/21 Unknown History release 24 hr simvastatin 40 mg tablet 40 mg PO BEDTIME 07/26/20 11/04/21 Unknown History spironolactone 25 mg tablet 25 mg PO DAILY 07/26/20 11/04/21 Unknown History torsemide 20 mg tablet 20 mg PO DAILY 07/26/20 11/04/21 Unknown History apixaban 5 mg tablet (Eliquis) 0.5 tab PO BID 09/12/21 11/04/21 10/05/21 History glipizide 5 mg tablet 10 mg PO BEDTIME 09/12/21 11/04/21 Unknown History metoprolol succinate 25 mg 25 mg PO DAILY 09/12/21 11/10/21 11/10/21 06:00 History tablet,extended release 24 hr Exam Height,Weight and Vital Signs: Height 5 ft 8 in Weight 68.492 kg Vital Signs Temp Pulse Resp BP Pulse Ox O2 Del Method 11/10/21 06:53 96.7 F L 81 18 103/59 L 100 Room Air Pertinent Lab Results Pertinent Lab Results: Laboratory Tests 09/06/21 10/26/21 15:11 10:50 WBC 4.9 Hgb 8.6 L Hct 27.7 L Plt Count 245 Sodium 136 Potassium 5.0 Chloride 103 Carbon Dioxide 23 BUN 40 H Creatinine 1.68 H Lab Results 11/10/21 11/10/21 11/10/21 Range/Units 06:40 06:40 06:43 WBC 3.9 L (4.8-10.8) X10*3/uL RBC 2.96 L (4.60-5.80) X10*6/uL Hgb 8.4 L (14.0-18.0) g/dl Hct 27.5 L (42.0-52.0) % MCV 92.9 (80.0-98.0) fL MCH 28.4 (27.0-33.0) pg MCHC 30.5 L (31.0-36.0) g/dl RDW 17.8 H (11.0-16.0) % Plt Count 233 (160-400) X10*3/uL MPV 8.6 L (9.4-12.4) fL Absolute Nucleated RBC 0.000 (0.0-0.012) X10*3/uL Nucleated RBC % (auto) 0.0 (0.0-0.2) /100WBC PT 14.2 H (10.0-13.1) SEC INR 1.2 H (0.9-1.1) POC Glucose 152 H (60-115) mg/dL Airway Mallampati Class: III TM Dist: >3cm Neck ROM: Full Partial: Upper Loose/Missing/Broken Teeth: No (No broken teeth per patient) Heart: Irregularly irregular Lungs: CTAB Other: ?Jaundiced Assessment and Plan Assessment Anesthesia Assessment: Anesthesia Plan Discussed Final Anesthetic Review NPO: Yes ASA Class: III Final Preanesthetic Review: No Changes in Pt Med Stat, Meds/Allgs Chart Reviewed, Consent Obtained/Reviewed and Anes Risks/Benef Reviewed Patient Risk: Intermediate Procedure Risk: Low Assessment/Block/Sedation in SS: Assess/Block/Sedation-SS Anesthetic Plan Anesthetic Plan: MAC: Disposition: Standard PACU
[2021-11-10 06:46] LABS: Hematocrit 27.5 % (42.0-52.0); Hemoglobin 8.4 g/dl (14.0-18.0); Mean Corpuscular HGB Conc 30.5 g/dl (31.0-36.0); Mean Corpuscular Hemoglobin 28.4 pg (27.0-33.0); Mean Corpuscular Volume 92.9 fL (80.0-98.0); Mean Platelet Volume 8.6 fL (9.4-12.4); Platelet Count 233 X10*3/uL (160-400); Red Blood Count 2.96 X10*6/uL (4.60-5.80); Red Cell Distribution Width 17.8 % (11.0-16.0); White Blood Count 3.9 X10*3/uL (4.8-10.8)
[2021-11-10 06:47] LABS: Glucose, Whole Blood 152 mg/dL (60-115)
[2021-11-10 06:51] LABS: INTERNATIONAL NORM RATIO 1.2 (0.9-1.1); Prothrombin Time 14.2 SEC (10.0-13.1)
[2021-11-10 06:53] VITALS: BP 103/59; PULSE 81; RESP 18; TEMP 35.9; O2SAT 100
[2021-11-10] MEDS: Lactated Ringers 1,000 ML 100 ML IVCONT (06:53)
--- NOTE | 2021-11-10 08:21 | W.PM.OPN ---
Operative Note Operative Note Date of Service: 11/10/21 Narrative: Operative Information Procedure Description:? Sigmoidoscopy Indication: Radiation proctitis and bleeding Anesthesia: MAC Sigmoidoscopy Instrument: Olympus variable stiffness pediatric scope 190L and upper Gi scope Colonoscopy Monitoring: Vital signs and clinical assessment, continuous EKG monitoring, Pulse oximetry, Carbon Dioxide monitoring and blood pressure monitoring were done throughout the procedure. Procedure: The patient was placed in the left lateral decubitis position and pre-procedure medications were administered. The video colonoscope was inserted into the rectum and advanced through the sigmoid. The colonoscope was slowly withdrawn in a retrograde panoramic fashion and the colon mucosa was carefully examined. Findings and interventions are described below. Procedure Difficulty: easy Findings: Friable, bleeding tissue with telangiectasia and ucleration from prior APC few weeks ago at the distal rectum close to the dentate line. The colonoscope was withdrawn and then an upper scope was used with distal attachment applied. Using ERBE jet at effect 30 the surrounding tissue was raised and then the telangiectatic areas were ablated with APC using 30 W. The bleeding ceased and then hemospray was applied. Retroflexion was not done. 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
[2021-11-10 08:32] VITALS: BP 90/60; PULSE 70; RESP 16; TEMP 36.4; O2SAT 99
--- NOTE | 2021-11-10 08:36 | P.BOP_ITS ---
Brief Operative Note Date of Service: 11/10/21 Pre-op diagnosis: Radiation proctitis/Rectal bleeding Post-op diagnosis: same Procedure: Sigmoidoscopy with APC and submucosal lift with methylene blue in saline, and Hemospray Surgeon: Darnell Jordan Anesthesia: MAC Was an Yarn Weight And Strength Tester used for this Procedure?: No Estimated blood loss (mL): 3.0 Pathology: none sent Condition: stable Disposition: PACU
[2021-11-10 08:46] VITALS: BP 104/69; PULSE 82; RESP 16; O2SAT 98
[2021-11-10 09:02] VITALS: BP 100/70; PULSE 73; RESP 18; O2SAT 99
== END 2021-11-10 09:24 | disposition home or self-care (01) ==
PROVIDERS: Nurse Practitioner; PCP Internal Medicine; Visit Provider Internal Medicine
PROC: 0DJD8ZZ Inspection of Lower Intestinal Tract, Via Natural or Artificial Opening Endoscopic (ICD-10-PCS; CPT 45330; principal; 2021-11-10 07:30)
DX: K62.5 Hemorrhage of anus and rectum (principal); D64.9 Anemia, unspecified; K62.7 Radiation proctitis; K51.20 Ulcerative (chronic) proctitis without complications; Y84.2 Radiological procedure and radiotherapy as the cause of abnormal reaction of the patient, or of later complication, without mention of misadventure at the time of the procedure; Z80.0 Family history of malignant neoplasm of digestive organs; Z85.46 Personal history of malignant neoplasm of prostate; I10 Essential (primary) hypertension; I48.91 Unspecified atrial fibrillation; K74.60 Unspecified cirrhosis of liver; E11.9 Type 2 diabetes mellitus without complications; Z79.84 Long term (current) use of oral hypoglycemic drugs; Z79.01 Long term (current) use of anticoagulants; Z79.899 Other long term (current) drug therapy; Z87.891 Personal history of nicotine dependence; Z96.652 Presence of left artificial knee joint
CPT/HCPCS: 45334; 36415; 82947; 85027; 85610; C2618; Q9968

== ENCOUNTER 2022-01-31 10:28 | Outpatient (REF) | payer MEDICARE, SELFPAY ==
[2022-01-31 10:44] LABS: MANUAL DIFF FLAG NO
[2022-01-31 11:53] LABS: Basophils Absolute Auto 0.1 X10*3/uL (0.0-0.2); Basophils Percent Auto 1.3 % (0-2); Eosinophils Absolute Auto 0.1 X10*3/uL (0.0-0.4); Eosinophils Percent Auto 1.5 % (0-4); Hemoglobin 10.9 g/dl (14.0-18.0); Imm Gran Abs Auto 0.02 X10*3/uL (0.00-0.03); Imm Gran Pct Auto 0.4 % (0.0-0.4); Lymphocytes Absolute Auto 0.9 X10*3/uL (1.2-4.9); Lymphocytes Percent Auto 18.8 % (20-40); Mean Corpuscular HGB Conc 32.1 g/dl (31.0-36.0); Mean Corpuscular Hemoglobin 31.2 pg (27.0-33.0); Mean Corpuscular Volume 97.4 fL (80.0-98.0); Monocytes Absolute Auto 0.6 X10*3/uL (0.1-1.2); Monocytes Percent Auto 12.2 % (2-11); Neutrophils Absolute Auto 3.1 x10*3/uL (2.0-8.3); Neutrophils Percent Auto 65.8 % (45-73); Platelet Count 221 X10*3/uL (160-400); Red Blood Count 3.49 X10*6/uL (4.60-5.80); Red Cell Distribution Width 22.9 % (11.0-16.0); White Blood Count 4.7 X10*3/uL (4.8-10.8)
== END 2022-01-31 10:29 | disposition home or self-care (01) ==
LOC: HO.LABR 10:28
PROVIDERS: PCP Internal Medicine; Visit Provider Internal Medicine
DX: K62.5 Hemorrhage of anus and rectum (principal); K62.7 Radiation proctitis
CPT/HCPCS: 36415; 85025

== ENCOUNTER 2022-02-06 10:42 | Outpatient (REF) | payer MEDICARE, SELFPAY ==
[2022-02-06 10:59] LABS: MANUAL DIFF FLAG NO
[2022-02-06 11:45] LABS: Basophils Absolute Auto 0.1 X10*3/uL (0.0-0.2); Eosinophils Absolute Auto 0.1 X10*3/uL (0.0-0.4); Eosinophils Percent Auto 1.6 % (0-4); Hematocrit 33.3 % (42.0-52.0); Hemoglobin 10.8 g/dl (14.0-18.0); Imm Gran Abs Auto 0.02 X10*3/uL (0.00-0.03); Imm Gran Pct Auto 0.4 % (0.0-0.4); Lymphocytes Percent Auto 20.2 % (20-40); Mean Corpuscular HGB Conc 32.4 g/dl (31.0-36.0); Mean Corpuscular Volume 98.5 fL (80.0-98.0); Mean Platelet Volume 9.6 fL (9.4-12.4); Monocytes Absolute Auto 0.7 X10*3/uL (0.1-1.2); Monocytes Percent Auto 14.7 % (2-11); Neutrophils Absolute Auto 3.1 x10*3/uL (2.0-8.3); Neutrophils Percent Auto 62.1 % (45-73); Platelet Count 198 X10*3/uL (160-400); Red Blood Count 3.38 X10*6/uL (4.60-5.80); Red Cell Distribution Width 22.5 % (11.0-16.0); White Blood Count 4.9 X10*3/uL (4.8-10.8)
== END 2022-02-06 10:43 | disposition home or self-care (01) ==
LOC: HO.LABR 10:42
PROVIDERS: PCP Internal Medicine; Visit Provider Internal Medicine
DX: K62.5 Hemorrhage of anus and rectum (principal); K62.7 Radiation proctitis
CPT/HCPCS: 36415; 85025

== ENCOUNTER 2022-02-13 11:04 | Outpatient (REF) | payer MEDICARE, SELFPAY ==
[2022-02-13 11:14] LABS: MANUAL DIFF FLAG NO
[2022-02-13 12:10] LABS: Basophils Absolute Auto 0.1 X10*3/uL (0.0-0.2); Basophils Percent Auto 1.3 % (0-2); Eosinophils Absolute Auto 0.1 X10*3/uL (0.0-0.4); Hematocrit 35.5 % (42.0-52.0); Hemoglobin 11.7 g/dl (14.0-18.0); Imm Gran Abs Auto 0.02 X10*3/uL (0.00-0.03); Imm Gran Pct Auto 0.4 % (0.0-0.4); Lymphocytes Percent Auto 22.1 % (20-40); Mean Corpuscular Hemoglobin 32.7 pg (27.0-33.0); Mean Corpuscular Volume 99.2 fL (80.0-98.0); Mean Platelet Volume 9.9 fL (9.4-12.4); Monocytes Absolute Auto 0.6 X10*3/uL (0.1-1.2); Monocytes Percent Auto 13.2 % (2-11); Neutrophils Absolute Auto 2.8 x10*3/uL (2.0-8.3); Platelet Count 218 X10*3/uL (160-400); Red Blood Count 3.58 X10*6/uL (4.60-5.80); Red Cell Distribution Width 21.9 % (11.0-16.0); White Blood Count 4.5 X10*3/uL (4.8-10.8)
== END 2022-02-13 11:05 | disposition home or self-care (01) ==
LOC: HO.LABR 11:04
PROVIDERS: PCP Internal Medicine; Visit Provider Internal Medicine
DX: K62.5 Hemorrhage of anus and rectum (principal); K62.7 Radiation proctitis
CPT/HCPCS: 36415; 85025

== ENCOUNTER 2022-02-23 06:22 | Day surgery (SDC) | payer MEDICARE, SELFPAY ==
--- NOTE | 2022-02-22 09:42 | HO.ANESPROP2 ---
Documented by User: Nazia Bertrand NP 02/22/22 09:45 HPI - Anesthesia Eval Consult details Narrative: 82yo M for Colonoscopy Hybrid ERBE Jet 2 s/p flex sig 10/2021 with TIVA Eliquis for afib PMFSH Active Problems Active Problems: All Active Problems (Updated 11/04/21 @ 12:08 by Lesvia Edwards, RN) Current use of anticoagulant therapy (Acute) Past Medical History Medical History Afib Anemia Cirrhosis Diabetes Elevated cholesterol Gout History of blood transfusion History of cardioversion History of prostate cancer History of shingles HTN (hypertension) Hx of flexible sigmoidoscopy Hx of therapeutic radiation Ulcerative proctitis Family History Family history of problems with anesthesia: No Surgical History Surgical History History of carpal tunnel release of both wrists History of total left knee replacement (TKR) Hx of bilateral inguinal hernia repair Hx of colonoscopy History of Problems with Anesthesia: No Social History Social History Are you a primary floor care technician to a significant other at home: No Do you presently have visiting nurse or other home services: No Patient Tobacco Use Status: Former Tobacco user Quit Date: Tobacco use type: Cigarette Use of substances other than those prescribed or required for medical reasons: No Are you DNR?: No Advance Directives: No Advance Directives Information Provided: Yes Meds Allergies Allergy/AdvReac Type Severity Reaction Status Date / Time amlodipine [From [facility]] AdvReac Severe Swelling Verified 11/04/21 12:05 Active Medications: Current Medications Sodium Biphosphate/Sodium Phosphate (Sodium Phosphate,[place]-Dibasic 133 Ml Enema) 133 ml MT ONCE PRN PRN Reason: Poor Colonoscopy Prep Results Home Medications Medication Instructions Recorded Confirmed Last Taken Type allopurinol 100 mg tablet 200 mg PO DAILY 07/26/20 11/04/21 Unknown History balsalazide 750 mg capsule 750 mg PO TID 07/26/20 11/04/21 Unknown History blood sugar diagnostic #10 ea 07/26/20 10/11/21 Unknown History doxazosin 2 mg tablet 2 mg PO DAILY@1700 07/26/20 11/04/21 Unknown History glipizide 5 mg tablet 15 mg PO DAILY 07/26/20 11/04/21 Unknown History lancets 30 gauge #100 ea 07/26/20 10/11/21 Unknown History metformin 500 mg tablet,extended 500 mg PO DAILY 07/26/20 11/04/21 Unknown History release 24 hr simvastatin 40 mg tablet 40 mg PO BEDTIME 07/26/20 11/04/21 Unknown History spironolactone 25 mg tablet 25 mg PO DAILY 07/26/20 11/04/21 Unknown History torsemide 20 mg tablet 20 mg PO DAILY 07/26/20 11/04/21 Unknown History apixaban 5 mg tablet (Eliquis) 0.5 tab PO BID 09/12/21 11/04/21 02/18/22 History glipizide 5 mg tablet 10 mg PO BEDTIME 09/12/21 11/04/21 Unknown History metoprolol succinate 25 mg 25 mg PO DAILY 09/12/21 11/10/21 02/18/22 History tablet,extended release 24 hr tamsulosin 0.4 mg capsule (Flomax) 0.4 mg PO DAILY 02/23/22 02/23/22 Unknown History Exam Exam Date and Time: February 22, 2022 0942 Pertinent Lab Results Pertinent Lab Results: Laboratory Tests 09/06/21 02/13/22 15:11 11:14 WBC 4.5 L Hgb 11.7 L Hct 35.5 L Plt Count 218 Sodium 136 Potassium 5.0 Chloride 103 Carbon Dioxide 23 BUN 40 H Creatinine 1.68 H Laboratory Tests 11/10/21 06:40 PT 14.2 H INR 1.2 H Assessment and Plan Assessment Anesthesia Assessment: Chart Reviewed Final Anesthetic Review Family History of Problems with Anesthesia: No History of Problems with Anesthesia: No Documented by User: Amanda Adrian MD 02/23/22 07:35 [facility] Past Medical History Medical History Afib Anemia Cirrhosis Diabetes Elevated cholesterol Gout History of blood transfusion History of cardioversion History of prostate cancer History of shingles HTN (hypertension) Hx of flexible sigmoidoscopy Hx of therapeutic radiation Ulcerative proctitis Surgical History Surgical History History of carpal tunnel release of both wrists History of total left knee replacement (TKR) Hx of bilateral inguinal hernia repair Hx of colonoscopy Social History Social History Are you a primary floor care technician to a significant other at home: No Do you presently have visiting nurse or other home services: No Patient Tobacco Use Status: Former Tobacco user Quit Date: Tobacco use type: Cigarette Use of substances other than those prescribed or required for medical reasons: No Are you DNR?: No Advance Directives: No Advance Directives Information Provided: Yes Meds Allergies Allergy/AdvReac Type Severity Reaction Status Date / Time amlodipine [From [facility]] AdvReac Severe Swelling Verified 11/04/21 12:05 Home Medications Medication Instructions Recorded Confirmed Last Taken Type allopurinol 100 mg tablet 200 mg PO DAILY 07/26/20 11/04/21 Unknown History balsalazide 750 mg capsule 750 mg PO TID 07/26/20 11/04/21 Unknown History blood sugar diagnostic #10 ea 07/26/20 10/11/21 Unknown History doxazosin 2 mg tablet 2 mg PO DAILY@1700 07/26/20 11/04/21 Unknown History glipizide 5 mg tablet 15 mg PO DAILY 07/26/20 11/04/21 Unknown History lancets 30 gauge #100 ea 07/26/20 10/11/21 Unknown History metformin 500 mg tablet,extended 500 mg PO DAILY 07/26/20 11/04/21 Unknown History release 24 hr simvastatin 40 mg tablet 40 mg PO BEDTIME 07/26/20 11/04/21 Unknown History spironolactone 25 mg tablet 25 mg PO DAILY 07/26/20 11/04/21 Unknown History torsemide 20 mg tablet 20 mg PO DAILY 07/26/20 11/04/21 Unknown History apixaban 5 mg tablet (Eliquis) 0.5 tab PO BID 09/12/21 11/04/21 02/18/22 History glipizide 5 mg tablet 10 mg PO BEDTIME 09/12/21 11/04/21 Unknown History metoprolol succinate 25 mg 25 mg PO DAILY 09/12/21 11/10/21 02/18/22 History tablet,extended release 24 hr tamsulosin 0.4 mg capsule (Flomax) 0.4 mg PO DAILY 02/23/22 02/23/22 Unknown History Exam Airway Mallampati Class: III TM Dist: >3cm Neck ROM: Limited Partial: Upper and Lower Loose/Missing/Broken Teeth: Yes, Upper and Lower Heart: RRR Lungs: CTA Assessment and Plan Assessment Anesthesia Assessment: Anesthesia Plan Discussed Final Anesthetic Review NPO: Yes ASA Class: III Final Preanesthetic Review: Meds/Allgs Chart Reviewed, Consent Obtained/Reviewed and Anes Risks/Benef Reviewed Patient Risk: Intermediate Procedure Risk: Low Anesthetic Plan Anesthetic Plan: MAC: Disposition: Standard PACU
[2022-02-23 06:43] VITALS: BP 111/58; PULSE 49; RESP 18; TEMP 36; O2SAT 99; BMI 22.6
[2022-02-23 06:57] LABS: Glucose, Whole Blood 143 mg/dL (60-115)
[2022-02-23] MEDS: Lactated Ringers 1,000 ML 100 ML IVCONT (07:15)
[2022-02-23] MEDS: Sodium Phosphate,Mono-Dibasic 133 ML ENEMA PR (07:16)
--- NOTE | 2022-02-23 07:51 | MHC.SHP ---
Pre-Procedural Eval Section A Date of Service: 02/23/22 Section B Chief Complaint: Radiation proctitis, Hemorrhage of anus and rectum Relevant Family History (Specify if Yes): No Relevant Social History: None Present Medications: see Short Stay Collaborative assessment Medical History: Significant History (Afib Anemia Cirrhosis Diabetes Elevated cholesterol Gout History of blood transfusion History of cardioversion History of prostate cancer History of shingles HTN (hypertension) Hx of flexible sigmoidoscopy Hx of therapeutic radiation Ulcerative proctitis) History of Previous Operations: Relevant previous surgery/procedure and date(s) (History of carpal tunnel release of both wrists History of total left knee replacement (TKR) Hx of bilateral inguinal hernia repair Hx of colonoscopy) Allergies: Allergies Allergy/AdvReac Type Severity Reaction Status Date / Time amlodipine [From [facility]] AdvReac Severe Swelling Verified 11/04/21 12:05 Review of Systems Sugical H&P ROS: Negative: Constitution, Cardiovascular, Respiratory, Neurological, Psychiatric, Hem-Onc, Allergic/Immunologic, Gastrointestinal, Genitourinary, Musculoskeletal, Integumentary, Endocrine and Eyes/Ears/Nose/Throat Exam Surgical H&P Exam: Normal: HEENT, Normal: Heart, Normal: Lungs, Normal: Extremities, Normal: Abdomen, Normal: Skin and Normal: Neurological Plan Diagnosis/Plan: Unchanged I have reviewed the history and physical and performed a pertinent physical examination on my patient. No changes have occurred unless specified.
--- NOTE | 2022-02-23 07:53 | W.PM.OPN ---
Operative Note Operative Note Date of Service: 02/23/22 Narrative: Procedure Description:? Sigmoidoscopy with ablation Indication: Radiation proctitis and bleeding Anesthesia: MAC Sigmoidoscopy Instrument: Olympus variable stiffness pediatric scope 190L and upper Gi scope Monitoring: Vital signs and clinical assessment, continuous EKG monitoring, Pulse oximetry, Carbon Dioxide monitoring and blood pressure monitoring were done throughout the procedure. Procedure: The patient was placed in the left lateral decubitis position and pre-procedure medications were administered. The video colonoscope was inserted into the rectum and advanced through the sigmoid. The colonoscope was slowly withdrawn in a retrograde panoramic fashion and the colon mucosa was carefully examined. Findings and interventions are described below. Procedure Difficulty: easy Findings: Friable, bleeding tissue with telangiectasia at the distal rectum close to the dentate line. An upper scope was used with distal attachment applied. Using ERBE jet at effect 45 the surrounding tissue was raised and then the telangiectatic areas were ablated with APC using 40 W. The bleeding ceased and then hemospray was applied. 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
[2022-02-23 08:30] VITALS: BP 101/64; PULSE 64; RESP 16; TEMP 36.2; O2SAT 95
[2022-02-23 08:45] VITALS: BP 113/68; PULSE 74; RESP 16; O2SAT 97
[2022-02-23 09:00] VITALS: BP 128/74; PULSE 67; RESP 16; TEMP 36.2; O2SAT 99
== END 2022-02-23 09:53 | disposition home or self-care (01) ==
PROVIDERS: PCP Internal Medicine; Visit Provider Internal Medicine Gastroenterology
PROC: (CPT 45334; principal; 2022-02-23 07:30)
DX: K62.7 Radiation proctitis (principal); K62.5 Hemorrhage of anus and rectum; Y84.2 Radiological procedure and radiotherapy as the cause of abnormal reaction of the patient, or of later complication, without mention of misadventure at the time of the procedure; Y78.1 Therapeutic (nonsurgical) and rehabilitative radiological devices associated with adverse incidents; Y92.9 Unspecified place or not applicable; Z92.3 Personal history of irradiation; I48.91 Unspecified atrial fibrillation; D64.9 Anemia, unspecified; K74.60 Unspecified cirrhosis of liver; E11.9 Type 2 diabetes mellitus without complications; E78.00 Pure hypercholesterolemia, unspecified; M10.9 Gout, unspecified; I10 Essential (primary) hypertension; Z79.01 Long term (current) use of anticoagulants; Z79.84 Long term (current) use of oral hypoglycemic drugs; Z79.899 Other long term (current) drug therapy; Z88.8 Allergy status to other drugs, medicaments and biological substances; Z85.46 Personal history of malignant neoplasm of prostate; Z96.652 Presence of left artificial knee joint; Z87.891 Personal history of nicotine dependence
CPT/HCPCS: 45334; 82947; C2618; Q9968

== ENCOUNTER 2022-03-20 10:49 | Outpatient (REF) | payer MEDICARE, SELFPAY ==
[2022-03-20 10:57] LABS: MANUAL DIFF FLAG NO
[2022-03-20 11:45] LABS: Basophils Absolute Auto 0.1 X10*3/uL (0.0-0.2); Basophils Percent Auto 1.1 % (0-2); Eosinophils Absolute Auto 0.1 X10*3/uL (0.0-0.4); Eosinophils Percent Auto 1.7 % (0-4); Hematocrit 31.9 % (42.0-52.0); Hemoglobin 10.3 g/dl (14.0-18.0); Imm Gran Abs Auto 0.02 X10*3/uL (0.00-0.03); Imm Gran Pct Auto 0.4 % (0.0-0.4); Lymphocytes Percent Auto 18.1 % (20-40); Mean Corpuscular HGB Conc 32.3 g/dl (31.0-36.0); Mean Corpuscular Hemoglobin 34.2 pg (27.0-33.0); Mean Platelet Volume 9.6 fL (9.4-12.4); Monocytes Absolute Auto 0.6 X10*3/uL (0.1-1.2); Neutrophils Absolute Auto 3.6 x10*3/uL (2.0-8.3); Neutrophils Percent Auto 66.7 % (45-73); Platelet Count 213 X10*3/uL (160-400); Red Blood Count 3.01 X10*6/uL (4.60-5.80); Red Cell Distribution Width 17.3 % (11.0-16.0); White Blood Count 5.4 X10*3/uL (4.8-10.8)
== END 2022-03-20 10:50 | disposition home or self-care (01) ==
LOC: HO.LABR 10:49
PROVIDERS: PCP Internal Medicine; Visit Provider Internal Medicine
DX: K62.5 Hemorrhage of anus and rectum (principal); K62.7 Radiation proctitis
CPT/HCPCS: 36415; 85025

== ENCOUNTER 2022-04-06 09:29 | Outpatient (REF) | payer MEDICARE, SELFPAY ==
[2022-04-06 09:45] LABS: MANUAL DIFF FLAG NO
[2022-04-06 10:03] LABS: Basophils Absolute Auto 0.1 X10*3/uL (0.0-0.2); Basophils Percent Auto 1.1 % (0-2); Eosinophils Absolute Auto 0.1 X10*3/uL (0.0-0.4); Eosinophils Percent Auto 1.3 % (0-4); Hematocrit 32.5 % (42.0-52.0); Hemoglobin 10.6 g/dl (14.0-18.0); Imm Gran Abs Auto 0.01 X10*3/uL (0.00-0.03); Imm Gran Pct Auto 0.2 % (0.0-0.4); Lymphocytes Absolute Auto 0.8 X10*3/uL (1.2-4.9); Lymphocytes Percent Auto 16.7 % (20-40); Mean Corpuscular HGB Conc 32.6 g/dl (31.0-36.0); Mean Corpuscular Hemoglobin 34.8 pg (27.0-33.0); Mean Corpuscular Volume 106.6 fL (80.0-98.0); Mean Platelet Volume 9.4 fL (9.4-12.4); Monocytes Absolute Auto 0.5 X10*3/uL (0.1-1.2); Monocytes Percent Auto 11.4 % (2-11); Neutrophils Absolute Auto 3.3 x10*3/uL (2.0-8.3); Neutrophils Percent Auto 69.3 % (45-73); Platelet Count 202 X10*3/uL (160-400); Red Blood Count 3.05 X10*6/uL (4.60-5.80); Red Cell Distribution Width 15.7 % (11.0-16.0); White Blood Count 4.7 X10*3/uL (4.8-10.8)
== END 2022-04-06 09:30 | disposition home or self-care (01) ==
LOC: HO.LABR 09:29
PROVIDERS: PCP Internal Medicine; Visit Provider Internal Medicine
DX: K62.5 Hemorrhage of anus and rectum (principal); K62.7 Radiation proctitis
CPT/HCPCS: 36415; 85025

== ENCOUNTER 2024-03-17 10:08 | Outpatient (REF) | payer MEDICARE, SELFPAY ==
--- NOTE | ~2024-03-17 | XR_ITS ---
EXAMINATION: XR ELBOW, RIGHT CLINICAL INFORMATION: M25.521 - Pain in right elbow COMPARISON: None available. TECHNIQUE: AP, lateral, and oblique views of the right elbow. FINDINGS: There is a well-corticated ossification just distal to the lateral epicondyle. This could reflect sequela of a partial tear of the common extensor tendon. 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 Soft tissue swelling posterior to the humerus and olecranon.. XR/XR elbow RT 2V IMPRESSION: Soft tissue swelling posterior to the humerus/olecranon nonspecific.. This could reflect a bursitis. This could reflect soft tissue swelling related to partial tear of the triceps tendon. 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 Possible old partial tear of the common extensor tendon Electronically signed by: Guillermo Chakraborty MD 03/22/2024 10:20 PM MICHELE
== END 2024-03-17 10:09 | disposition home or self-care (01) ==
LOC: HO.HOSX 10:08
PROVIDERS: Visit Provider Orthopaedic Surgery
DX: M25.521 Pain in right elbow (principal)
CPT/HCPCS: 73070; 99202

== ENCOUNTER 2024-03-17 11:16 | Outpatient (AMB) | payer MEDICARE, SELFPAY ==
--- NOTE | 2024-03-17 11:24 | MHC.OFFVIS ---
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 The patient states that he did have a cortisone injection given into the lateral aspect of his right elbow by Dr. Chinchilla in the past. He states that the injection gave him minimal relief. He does take Tylenol which gives him mild relief. He is not able to take anti-inflammatory medicines because he is on Eliquis. Denies any numbness or tingling in either of his upper extremities. Allergies amlodipine [From [facility]] Adverse Reaction (Severe, Verified 03/17/24 11:26) Swelling Medication List - Last Reconciled 03/17/24 by Clint White MD allopurinol 200 mg PO DAILY apixaban (Eliquis) 0.5 tabs PO BID balsalazide 750 mg PO TID blood sugar diagnostic As directed glipizide 10 mg PO BEDTIME hydrocortisone acetate (Anusol-HC) 25 mg [place] BEDTIME lancets As directed metformin ER 500 mg PO DAILY simvastatin 40 mg PO BEDTIME spironolactone 25 mg PO DAILY tamsulosin (Flomax) 0.4 mg PO DAILY torsemide 20 mg PO DAILY torsemide 20 mg PO DAILY [facility] Medical History Afib Anemia Cirrhosis Diabetes Elevated cholesterol Gout History of blood transfusion History of cardioversion History of prostate cancer History of shingles HTN (hypertension) Hx of flexible sigmoidoscopy Hx of therapeutic radiation Ulcerative proctitis Surgical History History of carpal tunnel release of both wrists History of total left knee replacement (TKR) Hx of bilateral inguinal hernia repair Hx of colonoscopy Social History Are you a primary pet care technician to a significant other at home: No Do you presently have visiting nurse or other home services: No Patient Tobacco Use Status: Former Tobacco user Tobacco use type: Cigarette Physical Exam Vital Signs: BMI result Body Mass Index 20.5 Const Other: Well-nourished well-developed very friendly male awake alert and oriented x3 in no acute distress Extrem Other: Bilateral upper extremity examination shows good capillary refill, no skin lesions noted, normal sensation light touch Right elbow examination shows full range of motion when compared to his left elbow, tenderness over his common extensor tendon origin, pain with resisted wrist extension, no overlying skin lesions Results Reviewed Results Reviewed: X-rays of the patient's right elbow taken today show mild diffuse joint space narrowing, no acute bony abnormalities Assessment & Plan Assessment & Plan (1) Right elbow pain: Code(s): M25.521 - Pain in right elbow Category: Medical Plan Mr. Carmona presents with intermittent right elbow pain due to lateral epicondylitis. I had a lengthy discussion with the patient regarding the treatment options. We will hold off on a cortisone injection at this time. Stretching exercises were demonstrated to the patient. He does not wish to go to formal physical therapy. He will continue taking Tylenol as needed. He will follow up with me on an as-needed basis should his symptoms worsen in any way. Feel free to call me at any time should questions regarding his orthopedic management arise. Thank you very much for asking me to see this very friendly gentleman. I spent 20 minutes in reviewing the patient's records and imaging studies, seeing the patient and documenting in the medical record. Orders: Orders XR elbow RT 2V Today M25.521 - Pain in right elbow Coding Level of Care Code New Pt Level 3 (23379) Complex EM visit Add On G2211 Diagnoses Right elbow pain M25.521
[2024-03-17 11:25] VITALS: BMI 20.5
== END 2024-03-17 11:56 | disposition home or self-care (01) ==
PROVIDERS: PCP Internal Medicine; Visit Provider Orthopaedic Surgery
DX: M25.521 Pain in right elbow (principal)
CPT/HCPCS: 99203; G2211